=== PATIENT | female | born 1950 | race Caucasian/White ===

== ENCOUNTER 2018-07-20 14:04 | Observation (INO) | payer BC, OTHER ==
[~2018-07-20] VITALS: Ht 170.2 cm; Wt 81.0 kg
--- NOTE | 2018-07-20 14:24 | NUR ---
PT C/O NAUSEA & VOMITING STARTED SUDDENLY AT WORK. CURRENTLY: "FEELS LIKE I'M GOING TO PASS OUT", RT LAT BREAST PAIN. ATE BREAKFAST. DENIES MED & RX HX. CARDIAC & VS MONITORING EQUIPMENT APPLIED.
--- NOTE | 2018-07-20 15:00 | NUR ---
LABS DRAWN. XR AT BS. PT NOTIFIED OF NEED FOR URINE SPECIMEN.
[2018-07-20 15:07] LABS: BASOPHILS # (AUTO) 0.02 x10^3/uL (0-0.1); BASOPHILS % (AUTO) 0 % (0-1); EOSINOPHILS # (AUTO) 0.05 x10^3/uL (0-0.4); EOSINOPHILS % (AUTO) 1 % (1-7); LYMPHOCYTES # (AUTO) 1.45 x10^3/uL (1-3.4); LYMPHOCYTES % (AUTO) 20 % (22-44); MD NO; MEAN CORPUSCULAR HEMOGLOBIN 31.5 pg (27.0-34.8); MEAN CORPUSCULAR HGB CONC 34.2 g/dL (32.4-35.8); MEAN PLATELET VOLUME 10.4 fL (7.4-10.4); MONOCYTES # (AUTO) 0.34 x10^3/uL (0.2-0.8); MONOCYTES % (AUTO) 5 % (2-9); NEUTROPHILS % (AUTO) 74 % (42-75); PLATELET COUNT 176 x10^3/uL (130-400); RED BLOOD COUNT 4.14 x10^6/uL (3.82-5.3); RED CELL DISTRIBUTION WIDTH 13.8 % (9.6-15.2)
[2018-07-20 15:19] LABS: ALANINE AMINOTRANSFERASE 32 U/L (12-78); ALBUMIN 4.2 g/dL (3.4-5.0); ANION GAP 9 mmol/L (5-15); CALCIUM 8.8 mg/dL (8.5-10.1); CHLORIDE 109 mmol/L (98-107); CREATININE 0.77 mg/dL (0.55-1.02)
[2018-07-20 15:21] LABS: ALKALINE PHOSPHATASE 107 U/L (45-117); BILIRUBIN,TOTAL 0.5 mg/dL (0.2-1.0); TOTAL PROTEIN 7.2 g/dL (6.4-8.2)
[2018-07-20 15:22] LABS: TROPONIN I < 0.015 ng/mL (0.000-0.045)
[2018-07-20 15:46] LABS: MICROSCOPIC NOT IND
[2018-07-20 15:48] LABS: CULTURE INDICATED? NO
--- NOTE | 2018-07-20 17:00 | NUR ---
PT REPORT TO DENAE AGUILERA. PT CARE TRANSFERRED
--- NOTE | 2018-07-20 17:35 | NUR ---
PT REPORT FROM DENAE AGUILERA. PT CARE ASSUMED.
--- NOTE | 2018-07-20 17:55 | NUR ---
PT UP TO ROOM BR W/ QUICK, STEADY GAIT.
--- NOTE | 2018-07-20 17:59 | NUR ---
RETURNED TO BED W/OUT INCIDENT. PT REPORTS FEELING "REALLY NAUSEOUS", SLIGHT LIGHTHEADEDNESS. DENIES PAIN. RESP EVEN & UNLABORED, SPEECH CLEAR, SKIN WNL.
--- NOTE | 2018-07-20 18:10 | NUR ---
TO CT PER ADELITA
[2018-07-20] MEDS ORDERED: OMNIPAQUE 350 MG/ML, 100ML BOTTLE ONE (18:26)
[2018-07-20] MEDS ORDERED: ACETAMINOPHEN 325 MG TABLET PO PRN (19:00)
[2018-07-20] MEDS ORDERED: AZITHROMYCIN 500 MG in SODIUM CHLORIDE 0.9% 250 ML IV SCH (19:00)
[2018-07-20] MEDS ORDERED: POLYETHYLENE GLYCOL 17 GM PACKET PO PRN (19:00)
[2018-07-20] MEDS ORDERED: NITROGLYCERIN 0.4 MG BOTTLE (25 TABS) SL PRN (19:00)
[2018-07-20] MEDS ORDERED: hydrALAzine 20 MG/ML, 1ML IVPush PRN (19:00)
[2018-07-20] MEDS ORDERED: CEFTRIAXONE PMX 1GM/50ML 50 ML IV SCH (19:00)
[2018-07-20] MEDS ORDERED: ONDANSETRON ODT 4 MG PO PRN (19:00)
[2018-07-20] MEDS ORDERED: ASPIRIN 81 MG TABLET CHEW PO ONE (19:00)
[2018-07-20] MEDS ORDERED: BISACODYL 10 MG SUPP PR PRN (19:00)
[2018-07-20] MEDS ORDERED: morphine SULFATE 10 MG/ML, 1ML IVPush PRN (19:00)
[2018-07-20] MEDS ORDERED: ASPIRIN 81 MG TABLET CHEW ONE (19:21)
[2018-07-20] MEDS ORDERED: HEPARIN 5,000 UNITS/ML, 1ML ONE (19:21)
[2018-07-20] MEDS ORDERED: CEFTRIAXONE PMX 1GM/50ML 50 ML ONE (19:21)
--- NOTE | 2018-07-20 19:25 | NUR ---
BLD CX WRIST BAND ON PT
--- NOTE | 2018-07-20 19:30 | NUR ---
TO AMBULATORY TO & FROM BR W/OUT INCIDENT; GAIT STEADY. STATES FREQUENCY IS USUAL FOR HER.
--- NOTE | 2018-07-20 19:40 | NUR ---
PT REPORT TO DENAE TAPIA FOR ROOM 516
[2018-07-20] MEDS: SODIUM CHLORIDE FLUSH 10ML SYR IVF SCH (19:47)
[2018-07-20] MEDS: HEPARIN 5,000 UNITS/ML, 1ML SQ SCH (19:52)
--- NOTE | 2018-07-20 19:53 | NUR ---
IV ASSESSED: PATENT. ROCEPHIN HUNG, INFUSING AT 100ML/HR VIA PUMP. ZITHROMAX DRIP WILL BE SENT TO FLOOR W/ PT. ASA & HEPARIN BOLUS GIVEN PER EMAR.
[2018-07-20] MEDS ORDERED: DIPHENHYDRAMINE 25 MG CAPSULE PO PRN (21:00)
[2018-07-20 22:08] LABS: TROPONIN I < 0.015 ng/mL (0.000-0.045)
[2018-07-20] MEDS ORDERED: LORA1TAB46 PO (23:50)
[2018-07-20] MEDS ORDERED: DIPH-423 PO (23:50)
[2018-07-21 00:26] VITALS: BP 122/73
[2018-07-21 01:12] LABS: BASOPHILS # (AUTO) 0.03 x10^3/uL (0-0.1); BASOPHILS % (AUTO) 0 % (0-1); EOSINOPHILS # (AUTO) 0.04 x10^3/uL (0-0.4); EOSINOPHILS % (AUTO) 0 % (1-7); LYMPHOCYTES % (AUTO) 22 % (22-44); MD NO; MEAN CORPUSCULAR HEMOGLOBIN 31.1 pg (27.0-34.8); MEAN CORPUSCULAR VOLUME 91.6 fL (80-100); MONOCYTES # (AUTO) 0.66 x10^3/uL (0.2-0.8); MONOCYTES % (AUTO) 7 % (2-9); NEUTROPHILS # (AUTO) 6.27 x10^3/uL (1.8-6.8); NEUTROPHILS % (AUTO) 70 % (42-75); PLATELET COUNT 187 x10^3/uL (130-400); RED BLOOD COUNT 3.92 x10^6/uL (3.82-5.3); RED CELL DISTRIBUTION WIDTH 14.4 % (9.6-15.2)
[2018-07-21 01:22] LABS: ALBUMIN 3.7 g/dL (3.4-5.0); ANION GAP 6 mmol/L (5-15); CALCIUM 8.5 mg/dL (8.5-10.1); CHLORIDE 109 mmol/L (98-107)
[2018-07-21 01:30] LABS: TROPONIN I < 0.015 ng/mL (0.000-0.045)
[2018-07-21 01:34] LABS: ALANINE AMINOTRANSFERASE 28 U/L (12-78); ALKALINE PHOSPHATASE 97 U/L (45-117); BILIRUBIN,TOTAL 0.4 mg/dL (0.2-1.0); CHOL/HDL RATIO 2.8; CHOLESTEROL, TOTAL 175 mg/dL (140-239); CREATININE 0.91 mg/dL (0.55-1.02); HDL CHOL % 35 % (28-40); HDL CHOLESTEROL (DIRECT) 62 mg/dL (40-60); LDL CHOLESTEROL,CALCULATED 99 mg/dL (54-169); LDL/HDL RATIO 1.6 (0.5-3.0); TOTAL PROTEIN 6.9 g/dL (6.4-8.2); TRIGLYCERIDES 72 mg/dL (50-200); VLDL CHOLESTEROL 14 mg/dL (0-25)
[2018-07-21] MEDS: HEPARIN 5,000 UNITS/ML, 1ML SQ SCH ×2 (03:40→12:00)
[2018-07-21 07:20] VITALS: BP 120/73
[2018-07-21] MEDS ORDERED: REGADENOSON 0.4 MG/5 ML SYRINGE ONE (08:46)
[2018-07-21] MEDS ORDERED: SENNA/DOCUSATE TABLET PO SCH (09:00)
[2018-07-21] MEDS ORDERED: ASPIRIN 81 MG TABLET CHEW PO SCH (09:00)
[2018-07-21] MEDS: SODIUM CHLORIDE FLUSH 10ML SYR IVF SCH (12:16)
[2018-07-21] MEDS ORDERED: CEFD300C37 PO (13:07)
[2018-07-21] MEDS ORDERED: DOXY100T10 PO (13:07)
[2018-07-21] MEDS ORDERED: L.AC1CAP6 PO (13:07)
[2018-07-21 13:09] VITALS: BP 138/92
[2018-07-21] MEDS ORDERED: ATOR40TA78 PO (13:10)
== END 2018-07-21 15:00 | disposition home or self-care (01) ==
LOC: ED 18:41 → INTOOBSV 18:47 → EDIP 18:47 → 5SO 20:01
PROVIDERS: ADMIT Internal Medicine; ATTEND Internal Medicine
DX: R07.89 Other chest pain (principal); J18.9 Pneumonia, unspecified organism; R11.2 Nausea with vomiting, unspecified; Z79.899 Other long term (current) drug therapy
CPT/HCPCS: 36415; 71045; 74177; 78452; 80053; 80061; 81003; 84439; 84443; 84484; 85025; 87040; 93005; 93017; 96365; 96367; 96372; 99285; A9502; C9898; G0378; J0456; J0696; J1644; J2785; J7050; Q0163; Q9967

== ENCOUNTER 2019-10-08 15:25 | Observation (INO) | payer MEDICARE ==
[~2019-10-08] VITALS: Ht 167.6 cm; Wt 80.0 kg
[~2019-10-08 15:25] MED LIST: ATOR40TA78 PO; CEFD300C37 PO; DIPH-423 PO; DOXY100T23 PO; L.AC1CAP6 PO; LORA1TAB46 PO
--- NOTE | 2019-10-08 15:43 | NUR ---
PT BIB BY [facility] WAS HAVING CHEST PA[facility]. UPON EMS ARRIVAL BP WAS 195/106. CURRENTLY BP IS 152/86. PT SAID CHEST PAIN HAS SINCE SUBSIDED. PT HOOKED UP TO ORDER PICKER/ASSEMBLER. BLANKET PROVIDED. CALL LIGHT WITHIN REACH
[2019-10-08 16:58] LABS: BASOPHILS # (AUTO) 0.02 x10^3/uL (0-0.1); BASOPHILS % (AUTO) 0 % (0-1); EOSINOPHILS # (AUTO) 0.05 x10^3/uL (0-0.4); EOSINOPHILS % (AUTO) 1 % (1-7); LYMPHOCYTES # (AUTO) 1.39 x10^3/uL (1-3.4); LYMPHOCYTES % (AUTO) 28 % (22-44); MD NO; MEAN CORPUSCULAR HEMOGLOBIN 30.7 pg (27.0-34.8); MEAN CORPUSCULAR HGB CONC 33.4 g/dL (32.4-35.8); MEAN CORPUSCULAR VOLUME 91.9 fL (80-100); MONOCYTES # (AUTO) 0.35 x10^3/uL (0.2-0.8); MONOCYTES % (AUTO) 7 % (2-9); NEUTROPHILS # (AUTO) 3.14 x10^3/uL (1.8-6.8); NEUTROPHILS % (AUTO) 63 % (42-75); PLATELET COUNT 164 x10^3/uL (130-400); RED BLOOD COUNT 4.22 x10^6/uL (3.82-5.3); RED CELL DISTRIBUTION WIDTH 14.3 % (9.6-15.2)
[2019-10-08 16:59] LABS: ALANINE AMINOTRANSFERASE 21 U/L (12-78); ALBUMIN 3.8 g/dL (3.4-5.0); ANION GAP 7 mmol/L (5-15); CALCIUM 8.9 mg/dL (8.5-10.1); CHLORIDE 111 mmol/L (98-107); CREATININE 0.69 mg/dL (0.55-1.02)
--- NOTE | 2019-10-08 17:00 | NUR ---
PT AMBULATED TO BATHROOM
[2019-10-08 17:03] LABS: ALKALINE PHOSPHATASE 92 U/L (45-117); BILIRUBIN,TOTAL 0.3 mg/dL (0.2-1.0); TOTAL PROTEIN 6.9 g/dL (6.4-8.2); TROPONIN I < 0.015 ng/mL (0.000-0.045)
--- NOTE | 2019-10-08 17:44 | NUR ---
PT TO BE ADM. DR HERNÁNDEZ BEDSIDE. PT EDUCATED ON PLAN OF CARE
[2019-10-08 19:52] VITALS: BP 137/84
[2019-10-08] MEDS ORDERED: DOCUSATE 100 MG CAPSULE PO PRN (20:00)
[2019-10-08] MEDS ORDERED: ONDANSETRON ODT 4 MG PO PRN (20:00)
[2019-10-08] MEDS ORDERED: morphine SULFATE 10 MG/ML, 1ML IVPush PRN (20:00)
[2019-10-08] MEDS ORDERED: NITROGLYCERIN 0.4 MG BOTTLE (25 TABS) SL PRN (20:00)
[2019-10-08] MEDS ORDERED: ONDANSETRON 2MG/ML, 2ML IVPush PRN (20:00)
[2019-10-08] MEDS ORDERED: hydrALAzine 20 MG/ML, 1ML IVPush PRN (20:00)
[2019-10-08] MEDS ORDERED: BISACODYL 10 MG SUPP PR PRN (20:00)
[2019-10-08] MEDS ORDERED: PROMETHAZINE 25 MG/ML, 1ML IM PRN (20:00)
[2019-10-08] MEDS ORDERED: POLYETHYLENE GLYCOL 17 GM PACKET PO PRN (20:00)
[2019-10-08] MEDS: ACETAMINOPHEN 325 MG TABLET PO PRN (21:15)
[2019-10-08] MEDS: HEPARIN 5,000 UNITS/ML, 1ML SQ SCH (21:16)
[2019-10-08] MEDS: SODIUM CHLORIDE 0.9% 1,000 ML IV SCH (21:16)
[2019-10-09 01:05] LABS: TROPONIN I < 0.015 ng/mL (0.000-0.045)
[2019-10-09 01:24] VITALS: BP 130/80
[2019-10-09 03:00] LABS: BASOPHILS # (AUTO) 0.02 x10^3/uL (0-0.1); BASOPHILS % (AUTO) 0 % (0-1); EOSINOPHILS # (AUTO) 0.14 x10^3/uL (0-0.4); EOSINOPHILS % (AUTO) 3 % (1-7); LYMPHOCYTES % (AUTO) 41 % (22-44); MD NO; MEAN CORPUSCULAR HEMOGLOBIN 30.7 pg (27.0-34.8); MEAN CORPUSCULAR HGB CONC 33.3 g/dL (32.4-35.8); MEAN PLATELET VOLUME 10.6 fL (7.4-10.4); MONOCYTES # (AUTO) 0.43 x10^3/uL (0.2-0.8); MONOCYTES % (AUTO) 8 % (2-9); NEUTROPHILS # (AUTO) 2.53 x10^3/uL (1.8-6.8); NEUTROPHILS % (AUTO) 48 % (42-75); PLATELET COUNT 165 x10^3/uL (130-400); RED BLOOD COUNT 4.05 x10^6/uL (3.82-5.3); RED CELL DISTRIBUTION WIDTH 14.6 % (9.6-15.2)
[2019-10-09 03:07] LABS: ALBUMIN 3.7 g/dL (3.4-5.0); ANION GAP 3 mmol/L (5-15); CALCIUM 8.5 mg/dL (8.5-10.1); CHLORIDE 111 mmol/L (98-107)
[2019-10-09] MEDS: ACETAMINOPHEN 325 MG TABLET PO PRN (03:11)
[2019-10-09 03:12] LABS: ALANINE AMINOTRANSFERASE 22 U/L (12-78); ALKALINE PHOSPHATASE 91 U/L (45-117); BILIRUBIN,TOTAL 0.2 mg/dL (0.2-1.0); CHOL/HDL RATIO 3.1; CHOLESTEROL, TOTAL 177 mg/dL (140-239); CREATININE 0.76 mg/dL (0.55-1.02); HDL CHOL % 32 % (28-40); HDL CHOLESTEROL (DIRECT) 57 mg/dL (40-60); LDL CHOLESTEROL,CALCULATED 88 mg/dL (54-169); LDL/HDL RATIO 1.5 (0.5-3.0); TOTAL PROTEIN 6.6 g/dL (6.4-8.2); TRIGLYCERIDES 162 mg/dL (50-200); TROPONIN I < 0.015 ng/mL (0.000-0.045); VLDL CHOLESTEROL 32 mg/dL (0-25)
[2019-10-09] MEDS: HEPARIN 5,000 UNITS/ML, 1ML SQ SCH ×2 (04:00→07:27)
[2019-10-09] MEDS ORDERED: ASPIRIN 325 MG TABLET EC PO SCH (06:00)
[2019-10-09] MEDS: SODIUM CHLORIDE 0.9% 1,000 ML IV SCH (07:01)
[2019-10-09] MEDS ORDERED: REGADENOSON 0.4 MG/5 ML SYRINGE ONE (08:37)
[2019-10-09 09:01] VITALS: BP 144/89
[2019-10-09 12:29] VITALS: BP 152/92
[2019-10-09] MEDS ORDERED: LISI5TAB7 PO (14:23)
== END 2019-10-09 15:39 | disposition home or self-care (01) ==
LOC: ED 19:30 → 5SO 19:49 → INTOOBSV 19:50 → 5SO 19:50 → ED 19:53 → DCLOUNGE 10-09 15:29
PROVIDERS: ADMIT Internal Medicine; ATTEND Internal Medicine
DX: R07.89 Other chest pain (principal); M79.605 Pain in left leg; M79.604 Pain in right leg; R53.83 Other fatigue; I20.0 Unstable angina; I10 Essential (primary) hypertension; Z87.19 Personal history of other diseases of the digestive system; Z87.891 Personal history of nicotine dependence; Z86.718 Personal history of other venous thrombosis and embolism; Z79.899 Other long term (current) drug therapy
CPT/HCPCS: 36415; 71045; 78452; 80053; 80061; 83036; 83690; 83735; 84439; 84443; 84484; 85025; 93005; 93017; 93306; 93356; 93922; 99284; A9502; G0378; J2785; J7030; 99285

== ENCOUNTER → 2020-03-02 | Outpatient (CLI) | payer MEDICARE ==
[~2020-03-02] MED LIST changes: +LISI5TAB7 PO
== END | disposition home or self-care (01) ==
LOC: CFH 10:19
PROVIDERS: ATTEND Internal Medicine Cardiovascular Disease
DX: Z13.6 Encounter for screening for cardiovascular disorders (principal); J84.10 Pulmonary fibrosis, unspecified; I25.10 Atherosclerotic heart disease of native coronary artery without angina pectoris; I77.810 Thoracic aortic ectasia
CPT/HCPCS: 75571; 93978